=== PATIENT | male | born 1980 | race Caucasian/White ===

== ENCOUNTER 2021-01-11 10:30 | Outpatient (RCR) | payer OTHER | END 2021-02-13 12:41 | disposition home or self-care (01) | LOC: WSOH 10:30 | DX: S39.012A Strain of muscle, fascia and tendon of lower back, initial encounter (principal); S16.1XXA Strain of muscle, fascia and tendon at neck level, initial encounter; E78.00 Pure hypercholesterolemia, unspecified; I10 Essential (primary) hypertension; E03.9 Hypothyroidism, unspecified; Z98.890 Other specified postprocedural states; Y99.0 Civilian activity done for income or pay ==

== ENCOUNTER 2021-01-17 10:46 | Outpatient (RCR) | payer OTHER | END 2021-01-23 10:52 | disposition home or self-care (01) | LOC: WSOH 10:46 | DX: S39.012A Strain of muscle, fascia and tendon of lower back, initial encounter (principal); S16.1XXA Strain of muscle, fascia and tendon at neck level, initial encounter; E78.00 Pure hypercholesterolemia, unspecified; I10 Essential (primary) hypertension; E03.9 Hypothyroidism, unspecified; Y99.0 Civilian activity done for income or pay ==

== ENCOUNTER → 2021-02-11 | Outpatient (CLI) | payer OTHER | LOC: COL.RAD 13:33 | DX: S39.012A Strain of muscle, fascia and tendon of lower back, initial encounter (principal); S16.1XXA Strain of muscle, fascia and tendon at neck level, initial encounter; M51.36 Other intervertebral disc degeneration, lumbar region; M51.37 Other intervertebral disc degeneration, lumbosacral region ==

== ENCOUNTER 2021-02-13 12:39 | Outpatient (RCR) | payer OTHER | END 2021-05-14 | disposition home or self-care (01) | LOC: WSOH | DX: S16.1XXD Strain of muscle, fascia and tendon at neck level, subsequent encounter (principal); M51.36 Other intervertebral disc degeneration, lumbar region; E78.00 Pure hypercholesterolemia, unspecified; I10 Essential (primary) hypertension; E03.9 Hypothyroidism, unspecified; Y99.0 Civilian activity done for income or pay ==